=== PATIENT | male | born 2000 ===

== ENCOUNTER 2021-01-18 19:50 | Emergency (ER) | payer OTHER ==
[~2021-01-18] VITALS: Ht 177.8 cm; Wt 83.9 kg
[2021-01-19] MEDS ORDERED: KETO10TA2 PO (00:14)
[2021-01-19] MEDS ORDERED: NORFLEX100MG PO (00:14)
== END 2021-01-19 00:21 | disposition home or self-care (01) ==
LOC: ER 19:50
DX: S13.4XXA Sprain of ligaments of cervical spine, initial encounter (principal); S70.02XA Contusion of left hip, initial encounter; S80.01XA Contusion of right knee, initial encounter; S80.12XA Contusion of left lower leg, initial encounter; V49.9XXA Car occupant (driver) (passenger) injured in unspecified traffic accident, initial encounter; Y93.89 Activity, other specified; Y92.488 Other paved roadways as the place of occurrence of the external cause; Y99.8 Other external cause status